=== PATIENT | male | born 1980 | race Caucasian/White ===

== ENCOUNTER 2018-06-08 14:19 | Emergency (ER) | payer OTHER ==
[~2018-06-08 14:19] MED LIST: ATARAX25 MG PO; IBU800 MG PO; Motrin,Rufen800 MG PO; NAPROSYN500 MG PO; NORCO 5-325 TA1 EACH PO; Orphenadrine C100 MG PO; PERCOCET 325 MG1 TA2 PO; PREDNISONE10 MG PO; PREDNISONE20 MG PO; TIZANIDINE HCL4 M1 PO; TYLENOL325 M2 PO; ULTRAM50 MG PO; ZOFRAN ODT4 MG SL
[2018-06-08 14:48] LABS: BASO # 0.1 10*3/uL (0.0-0.1); BASO % 0.9 % (0.0-1.0); EOS # 0.2 10*3/uL (0.0-0.4); EOS % 2.3 % (1.0-4.0); HEMOGLOBIN 14.5 g/dl (14.0-18.0); LYMPH # 1.9 10*3/uL (1.3-4.4); MEAN CELL VOLUME 91.7 fl (80.0-94.0); MEAN CORPUSCULAR HGB 30.9 pg (27.0-31.0); MEAN CORPUSCULAR HGB CONC 33.7 g/dl (33.0-37.0); MEAN PLATELET VOLUME 9.8 fl (9.6-12.3); MONO # 0.6 10*3/uL (0.1-1.0); MONO % 8.9 % (3.0-9.0); NEUT # 4.1 10*3/uL (2.3-7.9); NEUT % 60.5 % (47.0-73.0); PLATELET COUNT AUTOMATED 242 10*3/uL (130-400); RED BLOOD COUNT 4.69 10*6/uL (4.50-5.90); RED CELL DISTRI WIDTH 12.9 % (0-14.5); WHITE BLOOD COUNT 6.9 10*3/uL (4.8-10.8)
[2018-06-08 14:57] LABS: BILIRUBIN NEGATIVE (NEGATIVE); BLOOD 3+ (NEGATIVE); CLARITY CLOUDY (CLEAR); COLOR ORANGE (YELLOW); GLUCOSE TRACE (NEGATIVE); KETONE NEGATIVE (NEGATIVE); NITRITE POSITIVE (NEGATIVE); SPECIFIC GRAVITY >= 1.030 (1.005-1.030)
[2018-06-08 15:09] LABS: ALBUMIN 3.9 gm/dl (3.1-4.5); ALKALINE PHOSPHATASE 103 U/L (45-117); BUN 15 mg/dl (7-24); CHLORIDE 104 mmol/L (98-107); POTASSIUM 4.2 mmol/L (3.5-5.1); SGOT/AST 21 IU/L (3-35); SGPT/ALT 41 U/L (12-78); SODIUM 139 mmol/L (136-145); TOTAL PROTEIN 7.8 gm/dL (6.4-8.2)
[2018-06-08 15:23] LABS: LEUKO ESTERASE NEGATIVE (NEGATIVE)
[2018-06-08 15:24] LABS: MUCOUS 2+; RBC TNTC rbc/hpf (0-2)
[2018-06-08 15:25] LABS: BACTERIA 1+
[2018-06-08] MEDS ORDERED: Percocet 325 MG1 TAB PO (15:32)
[2018-06-08] MEDS ORDERED: SEPTDS PO (15:32)
[2018-06-08] MEDS ORDERED: ZOFRAN4 MG PO (15:32)
== END 2018-06-08 15:56 | disposition home or self-care (01) ==
LOC: ED 14:19
PROVIDERS: Nurse Practitioner Family
DX: N13.2 Hydronephrosis with renal and ureteral calculous obstruction (principal); N39.0 Urinary tract infection, site not specified; R03.0 Elevated blood-pressure reading, without diagnosis of hypertension; Z87.442 Personal history of urinary calculi; Z91.048 Other nonmedicinal substance allergy status

== ENCOUNTER 2023-04-29 13:52 | Emergency (ER) | payer OTHER ==
[~2023-04-29] VITALS: Ht 175.2 cm; Wt 104.3 kg
[~2023-04-29 13:52] MED LIST changes: +Percocet 325 MG1 TAB PO; +SEPTDS PO; +ZOFRAN4 MG PO
[2023-04-29 14:45] LABS: BILIRUBIN Negative (Negative); BLOOD Negative (Negative); CLARITY Clear (Clear); COLOR Yellow (Yellow); GLUCOSE 1+ (Negative); KETONE Trace (Negative); LEUKO ESTERASE Negative (Negative); NITRITE Negative (Negative); PH 5.5 (4.5-8.0); SPECIFIC GRAVITY >= 1.030 (1.001-1.030)
[2023-04-29 14:56] LABS: HEMATOCRIT 45.4 % (42.0-52.0); MEAN CELL VOLUME 90.1 fl (80.0-94.0); MEAN CORPUSCULAR HGB 29.8 pg (27.0-31.0); MEAN PLATELET VOLUME 9.3 fl (9.6-12.3); PLATELET COUNT AUTOMATED 230 10*3/uL (130-400); RED BLOOD COUNT 5.04 10*6/uL (4.50-5.90); RED CELL DISTRI WIDTH 12.6 % (0-14.5); WHITE BLOOD COUNT 8.2 10*3/uL (4.8-10.8)
[2023-04-29 14:57] LABS: MANUAL DIFF REFLEX YES
[2023-04-29 15:08] LABS: EPITHELIAL CELLS 0-2; MUCOUS 4+
[2023-04-29 15:18] LABS: ALKALINE PHOSPHATASE 86 U/L (46-116); BUN 10 mg/dl (9-23); CHLORIDE 105 mmol/L (98-107); POTASSIUM 3.9 mmol/L (3.4-5.1); SGPT/ALT 21 U/L (5-49); TOTAL PROTEIN 7.5 gm/dL (6.0-8.0)
[2023-04-29 15:20] LABS: BASOPHILS 1 % (0-1); PLATELET SUFFICIENCY NORMAL (NORMAL); TOTAL CELLS COUNTED 100 #CELLS
[2023-04-29] MEDS ORDERED: KETOROLAC10 MG PO (17:28)
[2023-04-29] MEDS ORDERED: FLOMAX0.4 MG PO (17:28)
[2023-04-29] MEDS ORDERED: ONDANSETRON4 MG SL (17:28)
== END 2023-04-29 17:46 | disposition home or self-care (01) ==
LOC: ED 13:52
PROVIDERS: Nurse Practitioner Family
DX: N20.0 Calculus of kidney (principal); R11.0 Nausea; Z88.8 Allergy status to other drugs, medicaments and biological substances; Z98.890 Other specified postprocedural states

== ENCOUNTER 2023-07-26 16:41 | Emergency (ER) | payer OTHER ==
[~2023-07-26] VITALS: Wt 111.1 kg
[~2023-07-26 16:41] MED LIST changes: +FLOMAX0.4 MG PO; +KETOROLAC10 MG PO; +ONDANSETRON4 MG SL
[2023-07-26] MEDS ORDERED: Tdap Vaccine 0.5 ML SYR (Adult Vaccine) IM ONE (17:10)
[2023-07-26] MEDS ORDERED: Bacitracin Zinc 14 GM TUBE T ONE (17:10)
[2023-07-26] MEDS ORDERED: CEPHALEXIN500 M1 PO (18:46)
[2023-07-26] MEDS ORDERED: CEPHALEXIN 500 MG CAP PO ONE (18:50)
== END 2023-07-26 18:49 | disposition home or self-care (01) ==
LOC: ED 16:41
DX: S61.032A Puncture wound without foreign body of left thumb without damage to nail, initial encounter (principal); Z98.890 Other specified postprocedural states; Z88.8 Allergy status to other drugs, medicaments and biological substances; Z87.442 Personal history of urinary calculi; W26.8XXA Contact with other sharp object(s), not elsewhere classified, initial encounter; Y93.89 Activity, other specified; Y92.89 Other specified places as the place of occurrence of the external cause; Y99.0 Civilian activity done for income or pay